=== PATIENT | male | born 1985 | race Hispanic/Latino ===

== ENCOUNTER 2018-07-07 03:34 | Emergency (ER) | payer MEDICAID, OTHER ==
[2018-07-07] MEDS ORDERED: IBUPROFEN 800 MG TAB ONE (03:47)
== END 2018-07-07 04:17 | disposition home or self-care (01) ==
LOC: EDH 03:34
DX: S43.005A Unspecified dislocation of left shoulder joint, initial encounter (principal); Z72.0 Tobacco use; X50.0XXA Overexertion from strenuous movement or load, initial encounter; Y93.89 Activity, other specified; Y92.89 Other specified places as the place of occurrence of the external cause; Y99.8 Other external cause status
CPT/HCPCS: 23650; 73030

== ENCOUNTER 2018-08-14 12:00 | Emergency (ER) | payer MEDICAID | END 2018-08-14 12:53 | disposition home or self-care (01) | LOC: EDH 12:00 | DX: S43.005A Unspecified dislocation of left shoulder joint, initial encounter (principal); X50.9XXA Other and unspecified overexertion or strenuous movements or postures, initial encounter; Y93.89 Activity, other specified; Y92.89 Other specified places as the place of occurrence of the external cause; Y99.8 Other external cause status | CPT/HCPCS: 23650; 73030 ==

== ENCOUNTER 2021-03-13 22:48 | Emergency (ER) | payer MEDICAID, OTHER ==
[~2021-03-13] VITALS: Ht 162.6 cm; Wt 72.6 kg
[2021-03-13 22:50] VITALS: BP 146/93
== END 2021-03-14 02:50 | disposition left against medical advice (07) ==
LOC: EDH 22:48
DX: M27.2 Inflammatory conditions of jaws (principal); Z53.21 Procedure and treatment not carried out due to patient leaving prior to being seen by health care provider
CPT/HCPCS: 70486

== ENCOUNTER 2021-03-14 10:59 | Inpatient (IN) | payer OTHER ==
[~2021-03-14] VITALS: Ht 162.6 cm; Wt 75.6 kg
[2021-03-14 11:01] VITALS: BP 155/92
[2021-03-14 12:14] VITALS: BP 148/88
[2021-03-14] MEDS ORDERED: 0.9%NACL 1000ML 1,000 ML IV SCH (12:30)
[2021-03-14 12:59] LABS: HEMATOCRIT 43.7 % (42-54); MEAN CORPUSCULAR HEMOGLOBIN 28.9 pg (27.0-33.0); MEAN CORPUSCULAR HGB CONC 32.7 g/dL (32.0-36.0); MEAN CORPUSCULAR VOLUME 88.3 fL (79-99); PLATELET COUNT (AUTO) 333 K/uL (130-400); RED BLOOD CELL COUNT(AUTO) 4.95 MIL/uL (4.50-6.20); RED CELL DISTRIBUTION WIDTH 15.8 % (11.0-15.5); WHITE BLOOD COUNT (AUTO) 17.7 K/uL (4.8-10.8)
[2021-03-14 13:08] LABS: CREATININE 1.1 mg/dL (0.5-1.5); POTASSIUM 3.9 mmol/L (3.5-5.1)
[2021-03-14 13:10] LABS: INR 1.02 (0.85-1.15); PROTHROMBIN TIME 11.1 SEC (9.6-11.6)
[2021-03-14 13:11] LABS: PARTIAL THROMBOPLASTIN TIME 29.1 SEC (26.3-35.5)
[2021-03-14 13:12] LABS: BILIRUBIN,TOTAL 0.8 mg/dL (0.2-1.0); TOTAL PROTEIN, SERUM 7.8 g/dL (6.0-8.3)
[2021-03-14 13:45] LABS: EOSINOPHILS % (MANUAL) 1 % (1-6); LYMPHOCYTES % (MANUAL) 7 % (22-44); MONOCYTES % (MANUAL) 13 % (2-9); REACTIVE LYMPHOCYTES 1 % (0-0); SEGMENTED NEUTROPHILS % 78 % (40-70)
[2021-03-14 13:46] LABS: MAN.DIFF COMMENT-IMPRESSION MANUAL DIFFERENTIAL; PLATELET MORPHOLOGY COMMENT ADEQUATE
[2021-03-14] MEDS: CEFAZOLIN SODIUM 1 GM VIAL IVP SCH ×2 (13:49→22:38)
[2021-03-14] MEDS ORDERED: ONDANSETRON 4MG INJ IVP PRN (14:00)
[2021-03-14 14:27] LABS: APPEARANCE,URINE Clear (CLEAR); BILIRUBIN,URINE Negative (NEGATIVE); COLOR,URINE Yellow (YELLOW); GLUCOSE, URINE (UA) Negative (NEGATIVE); KETONES,URINE Negative (NEGATIVE); LEUKOCYTE ESTERASE ,URINE Negative (NEGATIVE); NITRATE,URINE Negative (NEGATIVE); OCCULT BLOOD,URINE Negative (NEGATIVE); PH,URINE 5.5 (5.0-8.0); PROTEIN,URINE Negative (NEGATIVE); UROBILINOGEN,URINE 0.2 mg/dL (0.2-1.0)
[2021-03-14 18:09] VITALS: BP 124/86
[2021-03-14] MEDS: MORPHINE 2 MG SYG IVP PRN (19:48)
[2021-03-14 22:33] VITALS: BP 118/81
[2021-03-14 23:00] VITALS: BP 134/86
[2021-03-15] VITALS (23 sets, daily range): BP systolic 126–162; BP diastolic 72–99
[2021-03-15] MEDS: MORPHINE 2 MG SYG IVP PRN ×4 (00:58→20:34)
[2021-03-15] MEDS: CEFAZOLIN SODIUM 1 GM VIAL IVP SCH ×3 (05:12→20:32)
[2021-03-15] MEDS ORDERED: GLYCOPYRROLATE 1 MG/5 ML SYRINGE ONE (13:08)
[2021-03-15] MEDS ORDERED: DEXAMETHASONE SOD PHOSPHATE 10MG/ML 1ML VIAL ONE (13:08)
[2021-03-15] MEDS ORDERED: LIDOCAINE PF 100MG/5ML (2%) SYRINGE 5ML ONE (13:08)
[2021-03-15] MEDS ORDERED: NEOSTIGMINE 5MG/5ML SYR IV ONE (13:08)
[2021-03-15] MEDS ORDERED: ONDANSETRON 4MG INJ ONE (13:08)
[2021-03-15] MEDS ORDERED: ROCURONIUM 10MG/1ML SYR 10 MG/ML ML ONE (13:08)
[2021-03-15] MEDS ORDERED: MIDAZOLAM HCL 1 MG/ML 2ML VIAL ONE (13:08)
[2021-03-15] MEDS ORDERED: PROPOFOL 10 MG/ML 20ML VIAL IV ONE (13:08)
[2021-03-15] MEDS ORDERED: SUCCINYLCHOLINE CHLORIDE 20 MG/ML 10 ML VIAL ONE (13:08)
[2021-03-15] MEDS ORDERED: FENTANYL CITRATE PF 50 MCG/1 ML 2ML VIAL ONE ×2 (13:09→14:20)
[2021-03-15] MEDS ORDERED: LACTATED RINGERS 1000ML 1,000 ML IV ONE (13:39)
[2021-03-15] MEDS ORDERED: CEFAZOLIN SODIUM 1 GM VIAL ONE (13:48)
[2021-03-15] MEDS ORDERED: OXYMETAZOLINE HCL SPRAY 15 ML BOTTLE ONE ×2 (14:01→14:04)
[2021-03-15] MEDS ORDERED: MEPERIDINE-PF 25 MG/ML SYG ONE ×3 (15:00→15:52)
[2021-03-16] MEDS: MORPHINE 2 MG SYG IVP PRN ×2 (00:23→04:56)
[2021-03-16 04:00] VITALS: BP 130/85
[2021-03-16] MEDS: CEFAZOLIN SODIUM 1 GM VIAL IVP SCH (04:55)
== END 2021-03-16 11:40 | disposition home or self-care (01) | DRG 141 ==
LOC: EDH 10:59 → EDHIP 11:00 → 3BH 22:59
PROVIDERS: ADMIT Surgery Plastic and Reconstructive Surgery; ATTEND Surgery Plastic and Reconstructive Surgery
PROC: 0NST04Z Reposition Right Mandible with Internal Fixation Device, Open Approach (ICD-10-PCS; 2021-03-15)
PROC: 0NSV04Z Reposition Left Mandible with Internal Fixation Device, Open Approach (ICD-10-PCS; principal; 2021-03-15 14:01)
DX: S02.609A Fracture of mandible, unspecified, initial encounter for closed fracture (principal); T74.21XA Adult sexual abuse, confirmed, initial encounter; Y04.0XXA Assault by unarmed brawl or fight, initial encounter; Z20.822 Contact with and (suspected) exposure to COVID-19; Y93.89 Activity, other specified; Y92.89 Other specified places as the place of occurrence of the external cause; Y99.8 Other external cause status
CPT/HCPCS: 36415; 71045; 80053; 81003; 85025; 85610; 85730; 86850; 86900; 86901; 87635; 93005; G0378; J0330; J0690; J1100; J2001; J2175; J2250; J2405; J2704; J2710; J3010; J3490; J7030; J7120

== ENCOUNTER 2021-11-21 11:01 | Emergency (ER) | payer OTHER ==
[~2021-11-21] VITALS: Ht 180.3 cm; Wt 72.6 kg
[2021-11-21 11:02] VITALS: BP 148/71
== END 2021-11-21 11:46 | disposition left against medical advice (07) ==
LOC: EDH 11:01
DX: S43.005A Unspecified dislocation of left shoulder joint, initial encounter (principal); X58.XXXA Exposure to other specified factors, initial encounter; Y93.89 Activity, other specified; Y92.89 Other specified places as the place of occurrence of the external cause; Y99.8 Other external cause status
CPT/HCPCS: 23650; 29105; 73030